=== PATIENT | male | born 1945 | race Caucasian/White ===

== ENCOUNTER 2020-03-24 20:39 | Emergency (ER) | payer OTHER, MEDICAID ==
[~2020-03-24] VITALS: Ht 170.2 cm; Wt 72.0 kg
[2020-03-24] MEDS ORDERED: LIDOCAINE 2%,20 ML JEL.PF.APP MM ONE ×2 (20:50→20:59)
[2020-03-24] MEDS ORDERED: LIDOCAINE JELLY 2%, 30GM TP ONE (21:00)
--- NOTE | 2020-03-24 21:08 | NUR ---
this is a 75 year old male pt on hospice that presents to the er by ambulace for penile bleeding for the last 4-7 days. pt presents with what appear to be lesions that are bleeding. upon pulling back the foreskin more lesions are present on the meatus. the urethra is not visible. uroject topical placed in ua cup to soak the penis.
[2020-03-24 21:12] LABS: BASOPHILS % (AUTO) 1 % (0-1); EOSINOPHILS % (AUTO) 2 % (1-7); LYMPHOCYTES % (AUTO) 13 % (22-44); MEAN CORPUSCULAR HEMOGLOBIN 27.8 pg (27.5-34.5); MEAN CORPUSCULAR HGB CONC 33.5 g/dL (33.2-36.2); MEAN PLATELET VOLUME 7.7 fL (7.4-10.4); MONOCYTES % (AUTO) 7 % (2-9); NEUTROPHILS % (AUTO) 78 % (42-75); PLATELET COUNT 307 x10^3/uL (130-400); RED CELL DISTRIBUTION WIDTH 15.7 % (9.4-14.8)
[2020-03-24 21:13] LABS: MD NO
[2020-03-24 21:21] LABS: ANION GAP 15 mmol/L (5-15); CALCIUM 7.9 mg/dL (8.5-10.1); CHLORIDE 103 mmol/L (98-107)
[2020-03-24 21:22] LABS: ALBUMIN 2.7 g/dL (3.4-5.0)
[2020-03-24] MEDS ORDERED: SODIUM CHLORIDE FLUSH 10ML SYR IVF ONE (22:00)
[2020-03-24] MEDS ORDERED: SODIUM CHLORIDE 0.9% 1,000ML IVBOLUS ONE (22:00)
[2020-03-24] MEDS ORDERED: ONDANSETRON 2MG/ML, 2ML ONE (22:02)
[2020-03-24] MEDS ORDERED: ONDANSETRON 2MG/ML, 2ML IVPush ONE (22:30)
[2020-03-24 23:26] LABS: MICROSCOPIC INDICATED
[2020-03-25] MEDS ORDERED: LORazepam 1MG TABLET ONE (00:22)
[2020-03-25 00:30] VITALS: BP 138/73
[2020-03-25] MEDS ORDERED: LORazepam 1MG TABLET PO ONE (00:30)
--- NOTE | 2020-03-25 00:37 | NUR ---
Hospice nurse, Tanisha, called and informed that pt was discharge and on his way home so a hospice nurse could meet him there tonight.
== END 2020-03-25 00:47 | disposition home or self-care (01) ==
LOC: ED 23:43
DX: N30.01 Acute cystitis with hematuria (principal); N17.9 Acute kidney failure, unspecified; N40.1 Benign prostatic hyperplasia with lower urinary tract symptoms; R33.8 Other retention of urine; D62 Acute posthemorrhagic anemia; R00.0 Tachycardia, unspecified; Z85.51 Personal history of malignant neoplasm of bladder; Z51.5 Encounter for palliative care
CPT/HCPCS: 36415; 51702; 80048; 81001; 82040; 85025; 86850; 86900; 87086; 96361; 96374; 99283; J2405; J7030